=== PATIENT | female | born 1950 | race Caucasian/White ===

== ENCOUNTER 2017-12-18 08:41 | Day surgery (SDC) | payer MEDICARE ==
[~2017-12-18] VITALS: Ht 161.3 cm; Wt 57.6 kg
[2017-12-18] MEDS ORDERED: LACTATED RINGERS 1,000 ML IV SCH (09:20)
[2017-12-18] MEDS ORDERED: LIDOCAINE-MPF 1%, 2ML INFIL ONE (09:30)
[2017-12-18] MEDS ORDERED: TRAZ150T62 PO (09:37)
[2017-12-18] MEDS ORDERED: LIOT5TAB3 PO (09:37)
[2017-12-18] MEDS ORDERED: VALA500T PO (09:37)
[2017-12-18] MEDS ORDERED: LEVO100T5 PO (09:37)
[2017-12-18] MEDS ORDERED: OXYCODONE PO (09:37)
[2017-12-18] MEDS ORDERED: CYAN10002 INJ (09:46)
[2017-12-18] MEDS ORDERED: LINA290C PO (09:46)
[2017-12-18] MEDS ORDERED: [UNRECOGNIZED DRUG - CODE] IV (09:46)
[2017-12-18] MEDS ORDERED: IMMU10VI7 IV (09:46)
[2017-12-18] MEDS ORDERED: SOMA0.2D INJ (09:46)
[2017-12-18] MEDS ORDERED: VENL37.57 PO (09:46)
[2017-12-18] MEDS ORDERED: CLON1TAB4 PO (09:46)
[2017-12-18] MEDS ORDERED: RIFA550T4 PO (09:46)
[2017-12-18 10:00] VITALS: BP 118/72
[2017-12-18] MEDS ORDERED: LORazepam 2 MG/ML, 1ML IVPush PRN (10:00)
[2017-12-18] MEDS ORDERED: LABETALOL 5MG/ML, 20ML IV PRN (10:00)
[2017-12-18] MEDS ORDERED: PROMETHAZINE 25 MG/ML, 1ML IV PRN (10:00)
[2017-12-18] MEDS ORDERED: MIDAZOLAM 1 MG/ML, 2ML IV PRN (10:00)
[2017-12-18] MEDS ORDERED: PROCHLORPERAZINE 5 MG/ML, 2ML IV PRN (10:00)
[2017-12-18] MEDS ORDERED: FENTANYL PF 100 MCG/2ML IV PRN (10:00)
[2017-12-18] MEDS ORDERED: HYDROmorphone 1 MG/ML, 1ML IV PRN (10:00)
[2017-12-18] MEDS ORDERED: hydrALAzine 20 MG/ML, 1ML IV PRN (10:00)
[2017-12-18] MEDS ORDERED: PROPOFOL 10 MG/ML, 20ML ONE (10:30)
[2017-12-18] MEDS ORDERED: DEXAMETHASONE 4 MG/ML, 1ML ONE (10:30)
[2017-12-18] MEDS ORDERED: ONDANSETRON 2MG/ML, 2ML ONE (10:30)
[2017-12-18] MEDS ORDERED: SUCCINYLCHOLINE 20 MG/ML, 10ML ONE (10:30)
[2017-12-18] MEDS ORDERED: GLYCOPYRROLATE 0.2MG/1ML, 5ML ONE (10:30)
[2017-12-18] MEDS ORDERED: ROCURONIUM 10 MG/ML,10ML ONE (10:30)
[2017-12-18] MEDS ORDERED: FENTANYL PF 100 MCG/2ML ONE ×2 (10:50→11:31)
== END 2017-12-18 15:20 | disposition home or self-care (01) ==
LOC: OUT 08:41
PROVIDERS: ATTEND Internal Medicine Geriatric Medicine
DX: K31.819 Angiodysplasia of stomach and duodenum without bleeding (principal); K63.9 Disease of intestine, unspecified; K92.2 Gastrointestinal hemorrhage, unspecified; D64.9 Anemia, unspecified; E03.9 Hypothyroidism, unspecified; Z87.39 Personal history of other diseases of the musculoskeletal system and connective tissue; Z90.49 Acquired absence of other specified parts of digestive tract; Z90.710 Acquired absence of both cervix and uterus; Z98.890 Other specified postprocedural states; Z88.1 Allergy status to other antibiotic agents; Z88.8 Allergy status to other drugs, medicaments and biological substances
CPT/HCPCS: 43236; 43270; 93005; A4648; J0330; J1100; J2405; J2704; J3010; J3490; J7120